=== PATIENT | female | born 1960 | race African-American/Black ===

== ENCOUNTER 2021-08-15 05:37 | Emergency (ER) | payer MEDICAID ==
[~2021-08-15] VITALS: Ht 180.3 cm; Wt 59.0 kg
[2021-08-15 06:11] VITALS: BP_SYST 119
[2021-08-15] MEDS ORDERED: predniSONE 20 MG TABLET PO ONE (06:45)
[2021-08-15 06:52] LABS: BASOPHILS % (AUTO) 0.3 % (0.0-2.0); EOSINOPHILS % (AUTO) 0.3 % (0.0-4.0); HEMATOCRIT 37.6 % (36-48); HEMOGLOBIN 12.3 g/dL (12.0-16.0); LYMPHOCYTES # (AUTO) 1.9 K/uL (1.0-5.5); LYMPHOCYTES % (AUTO) 19.7 % (20.5-51.5); MEAN CORPUSCULAR HEMOGLOBIN 22 pg (27-31); MEAN CORPUSCULAR HGB CONC 33 % (32-36); MEAN CORPUSCULAR VOLUME 66 fL (79.0-98.0); MONOCYTES # (AUTO) 1.1 K/uL (0.0-1.0); MONOCYTES % (AUTO) 11.6 % (1.7-9.3); NEUTROPHILS # (AUTO) 6.4 K/uL (1.8-7.7); NEUTROPHILS % (AUTO) 68.1 % (40.0-70.0); PLATELET COUNT (AUTO) 259 K/uL (130-430); RED BLOOD CELL COUNT(AUTO) 5.67 MIL/uL (4.2-6.2); RED CELL DISTRIBUTION WIDTH 14.8 % (9.0-15.0); WHITE BLOOD COUNT (AUTO) 9.5 K/uL (4.8-10.8)
[2021-08-15] MEDS ORDERED: predniSONE 20 MG TABLET ONE (06:59)
[2021-08-15] MEDS ORDERED: IPRATROPIUM/ALBUTEROL SULFATE 3 ML AMPUL.NEB (DUONEB) INH ONE (07:00)
[2021-08-15] MEDS ORDERED: methylPREDNISolone SOD SUCC/PF 62.5 MG/ML VIAL IVP ONE (07:00)
[2021-08-15 07:12] LABS: CALCIUM 8.9 mg/dL (8.4-11.0); CREATININE 0.84 mg/dL (0.55-1.30); POTASSIUM 3.8 mmol/L (3.5-5.1)
[2021-08-15 07:22] LABS: ALBUMIN 3.3 g/dL (3.4-4.8); TOTAL BILIRUBIN 0.3 mg/dL (0.0-1.0)
[2021-08-15 12:03] VITALS: BP_SYST 107
== END 2021-08-15 12:01 | disposition short-term general hospital (02) ==
LOC: SED 05:37
DX: J45.901 Unspecified asthma with (acute) exacerbation (principal); Z20.822 Contact with and (suspected) exposure to COVID-19
CPT/HCPCS: 36415; 36600; 71045; 80053; 82803; 83880; 84484; 85025; 87426; 93005; 94640; 96374; 99285; J7512

== ENCOUNTER 2022-09-25 17:51 | Inpatient (IN) | payer MEDICAID ==
[~2022-09-25] VITALS: Ht 177.8 cm; Wt 79.2 kg
--- NOTE | 2022-09-25 18:08 | NUR ---
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
--- NOTE | 2022-09-25 18:49 | NUR ---
XRAY AT BEDSIDE AT THIS TIME
[2022-09-25 19:20] LABS: BASOPHILS % (AUTO) 0.4 % (0.0-2.0); HEMATOCRIT 40.1 % (36-48); HEMOGLOBIN 13.1 g/dL (12.0-16.0); LYMPHOCYTES # (AUTO) 1.3 K/uL (1.0-5.5); LYMPHOCYTES % (AUTO) 13.4 % (20.5-51.5); MEAN CORPUSCULAR HEMOGLOBIN 22 pg (27-31); MEAN CORPUSCULAR HGB CONC 33 % (32-36); MEAN CORPUSCULAR VOLUME 67 fL (79.0-98.0); MONOCYTES % (AUTO) 10.8 % (1.7-9.3); NEUTROPHILS # (AUTO) 7.1 K/uL (1.8-7.7); NEUTROPHILS % (AUTO) 75.4 % (40.0-70.0); PLATELET COUNT (AUTO) 210 K/uL (130-430); RED BLOOD CELL COUNT(AUTO) 6.02 MIL/uL (4.2-6.2); RED CELL DISTRIBUTION WIDTH 15.9 % (9.0-15.0); WHITE BLOOD COUNT (AUTO) 9.4 K/uL (4.8-10.8)
--- NOTE | 2022-09-25 19:39 | NUR ---
MRSA AND COVID COLLECTED AND SENT TO LAB.
--- NOTE | 2022-09-25 19:40 | NUR ---
Received report from DAJUAN Lopez; assuming care of patient at this time.
[2022-09-25 19:41] LABS: CALCIUM 9.3 mg/dL (8.4-11.0); CREATININE 1.01 mg/dL (0.55-1.30)
[2022-09-25] MEDS ORDERED: MEROPENEM 1 GM IVPB PREMIX 50 ML IV ONE (19:45)
[2022-09-25] MEDS ORDERED: VANCOMYCIN HCL 1,000 MG in NS 250 ML IV ONE (19:45)
--- NOTE | 2022-09-25 19:45 | NUR ---
RUPESH APODACA Kwaw at bedside.
[2022-09-25 19:46] LABS: ALBUMIN 3.6 g/dL (3.4-4.8); TOTAL BILIRUBIN 0.3 mg/dL (0.0-1.0)
--- NOTE | 2022-09-25 19:46 | NUR ---
Patient A/Ox4, VSS, ambulatory, resp even and unlabored. Patient has productive cough. Patient resting comfortably in bed with safety precautions and connected to monitor. Nad noted at this time.
[2022-09-25] MEDS ORDERED: ACETAMINOPHEN WITH CODEINE 12.5 ML UDC PO ONE (20:00)
--- NOTE | 2022-09-25 22:07 | NUR ---
Admit bed requested Patient will be admitted to care of . Admitted to TELEMETRY unit. Diagnosis RESPIRATORY FAILURE Inpatient (Yes or No) Y Observation (Yes or No) N Orientation concerns or request close to nursing station (Yes or No) Y Covid Status PENDING On vent or bipap N Isolation requirements N Needs a sitter N From Home (Yes or if No enter name of facility) [facility] Requires Dialysis (Yes or No) N Med Rec Completed (Yes of No) Y
[2022-09-25] MEDS ORDERED: IPRATROPIUM/ALBUTEROL SULFATE 3 ML AMPUL.NEB (DUONEB) INH PRN (22:30)
--- NOTE | 2022-09-25 23:00 | NUR ---
Patient pulled out IV at this time.
--- NOTE | 2022-09-25 23:01 | NUR ---
Received call from MD Hutchinson with [facility] for patient to have CTA of chest with contrast to rule out PE.
--- NOTE | 2022-09-25 23:05 | NUR ---
CONSULTATION CALLED FOR DR. GAMING FOR CONSULT OF RESP FAILURE ORDER BY DR. ROQUE SPOKE WITH BARBARA
--- NOTE | 2022-09-25 23:20 | NUR ---
ER MD Huitron at bedside.
--- NOTE | 2022-09-26 00:10 | NUR ---
Patient will be admitted to care of [facility]. Admitted to tele unit. Will go to room 134B. Belongings list completed. Complete and up to date summary report printed. SBAR report given to DAJUAN Lopez at bedside with opportunity for questions.
[2022-09-26] MEDS: METHYLPREDNISOLONE SOD SUCC 40 MG/ML VIAL IVP SCH ×5 (00:27→20:41)
--- NOTE | 2022-09-26 01:07 | NUR ---
LEFT VOICEMAIL FOR PT DAUGHTER AT [phone] FOR CONSENT FOR IV CONTRAST Addendum: 09/26/22 at 0415 by Jessica Brambila RN SON, NOT DAUGHTER
--- NOTE | 2022-09-26 02:49 | NUR ---
RECEIVED PT FROM ED, NO DISTRESS NOTED, DENIES PAIN. SSOX3, LETHARGIC. O2 SAT 93% 2L NC, APPLIED 3L O2 SAT 95%. LUNG SOUNDS DIMINISHED. IV TO RT NECK IJ SITE CDI.
[2022-09-26 04:04] VITALS: BP_SYST 116
--- NOTE | 2022-09-26 04:15 | NUR ---
SHERRY BOYD (SON) PHONE NUMBER: [phone]
[2022-09-26] MEDS ORDERED: PIOG15TA8 PO (05:08)
[2022-09-26] MEDS ORDERED: GLIP5TAB26 PO (05:08)
[2022-09-26] MEDS ORDERED: METF-379 PO (05:08)
[2022-09-26] MEDS ORDERED: NIAC250T26 PO (05:08)
[2022-09-26] MEDS ORDERED: BENZ1TAB82 PO (05:08)
[2022-09-26] MEDS ORDERED: HAL5 PO (05:08)
[2022-09-26] MEDS ORDERED: LIP40 PO (05:08)
[2022-09-26] MEDS ORDERED: ASPI-989 PO (05:08)
[2022-09-26] MEDS ORDERED: TIOT4MIS5 IH (05:08)
[2022-09-26] MEDS ORDERED: GLIP5TAB13 PO (06:52)
--- NOTE | 2022-09-26 08:00 | NUR ---
PATIENT UNSTEADY AND ATTEMPTING TO AMBULATE, TRIED TO REDIRECT PATIENT, MOVED TO ROOM 132 B, TO HAVE HER CLOSER TO NURSES STATION FOR SAFETY, BED ALARM SET, BED IN LOWEST POSITION
--- NOTE | 2022-09-26 10:23 | NUR ---
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
[2022-09-26 11:22] VITALS: BP_SYST 101
[2022-09-26] MEDS ORDERED: IPRATROPIUM/ALBUTEROL SULFATE 3 ML AMPUL.NEB (DUONEB) INH ONE (15:30)
[2022-09-26] MEDS ORDERED: cefTRIAXone 1 GM in D5W 50 ML IV SCH (16:30)
[2022-09-26 16:33] VITALS: BP_SYST 104
--- NOTE | 2022-09-26 16:34 | NUR ---
ORDERS RECEIVED FROM DR. ROQUE TO NM TELEMETRY
[2022-09-26 19:50] VITALS: BP_SYST 111
--- NOTE | 2022-09-26 19:50 | NUR ---
RECEIVED PT IN BED, AOX2, EVEN AND UNLABORED BREATHING, R IJ SALINE LOCK DRY AND INTACT, DENIED ANY PAIN, WILL CONTINUE WITH PLAN OF CARE
[2022-09-26] MEDS: IPRATROPIUM/ALBUTEROL SULFATE 3 ML AMPUL.NEB (DUONEB) INH SCH (21:17)
[2022-09-26] MEDS: DOXYCYCLINE HYCLATE 100 MG CAPSULE PO SCH (21:30)
[2022-09-26] MEDS: INSULIN REGULAR, HUMAN 100 UNITS/ML, 3 ML VIAL (humuLIN R) SUBCUT PRN (21:31)
--- NOTE | 2022-09-26 22:54 | NUR ---
CHECKED PT BS AT 2100 AND IT WAS 342, NO S/S HYPERGLYCEMIA NOTED, NO ACCUCHECK OR SLIDING SCALE ORDER IN PLACE. DR. ROQUE CONTACTED AND ORDERED ACHS AND SLIDING SCALE, PT RECEIVED 8 UNITS OF REGULAR INSULIN, WILL CONTINUE WITH PLAN OF CARE
[2022-09-27] VITALS: BP_SYST 133
--- NOTE | 2022-09-27 00:53 | NUR ---
PT PULLED OUT REJ ACCESS AT THIS TIME, PRESSURE APPLIED AND BLEEDING STOPPED, NO COMPLAIN BY PT, WILL CONTINUE WITH POC
[2022-09-27] MEDS: IPRATROPIUM/ALBUTEROL SULFATE 3 ML AMPUL.NEB (DUONEB) INH SCH ×8 (02:06→23:10)
[2022-09-27] MEDS: METHYLPREDNISOLONE SOD SUCC 40 MG/ML VIAL IVP SCH ×2 (03:31→09:02)
--- NOTE | 2022-09-27 06:21 | NUR ---
PT IN BED, AOX2, EVEN AND UNLABORED BREATHING, DENIED SOB, CP, OR PAIN AT THIS TIME, RW SALINE LOCK PATENT, PT PULLED OUT THE REJ DURING SHIFT, ACCUCHECK DONE AND PT COVERED WITH INSULIN PER SLIDING SCALE, ON BEDREST, VOIDING W/O DIFFICULTY, HAD 2 BM DURING SHIFT, SAFETY PREC MAINTAINED, LOW BED, CALL LIGHT WITHIN REACH, WILL BE ENDORSED TO MORNING RN
[2022-09-27] MEDS: INSULIN REGULAR, HUMAN 100 UNITS/ML, 3 ML VIAL (humuLIN R) SUBCUT PRN ×3 (06:30→17:15)
[2022-09-27 06:51] LABS: C-REACTIVE PROTEIN QUANT 2.9 mg/dL (0-0.5); CALCIUM 9.1 mg/dL (8.4-11.0); CREATININE 0.86 mg/dL (0.55-1.30)
[2022-09-27 07:03] LABS: BASOPHILS % (AUTO) 0.1 % (0.0-2.0); HEMATOCRIT 37.5 % (36-48); HEMOGLOBIN 12.2 g/dL (12.0-16.0); LYMPHOCYTES % (AUTO) 11.4 % (20.5-51.5); MEAN CORPUSCULAR HEMOGLOBIN 22 pg (27-31); MEAN CORPUSCULAR HGB CONC 32 % (32-36); MEAN CORPUSCULAR VOLUME 68 fL (79.0-98.0); MONOCYTES # (AUTO) 0.2 K/uL (0.0-1.0); MONOCYTES % (AUTO) 2.4 % (1.7-9.3); NEUTROPHILS # (AUTO) 7.5 K/uL (1.8-7.7); PLATELET COUNT (AUTO) 186 K/uL (130-430); RED BLOOD CELL COUNT(AUTO) 5.55 MIL/uL (4.2-6.2); RED CELL DISTRIBUTION WIDTH 15.8 % (9.0-15.0); WHITE BLOOD COUNT (AUTO) 8.7 K/uL (4.8-10.8)
[2022-09-27 08:00] LABS: NEUTROPHILS % (AUTO) 86.1 % (40.0-70.0)
[2022-09-27 08:25] VITALS: BP_SYST 120
[2022-09-27 08:52] LABS: ERYTHROCYTE SEDIMENTATION RATE 104 MM/HR (0-20)
[2022-09-27] MEDS: DOXYCYCLINE HYCLATE 100 MG CAPSULE PO SCH ×2 (09:02→21:27)
[2022-09-27 11:20] VITALS: BP_SYST 114
[2022-09-27] MEDS ORDERED: FAMOTIDINE 20 MG TABLET PO ONE (13:00)
[2022-09-27] MEDS ORDERED: HALOPERIDOL 5 MG TABLET (HALDOL) PO PRN (13:30)
[2022-09-27] MEDS ORDERED: ASPIRIN 325 MG TABLET PO ONE (13:45)
[2022-09-27] MEDS ORDERED: BENZTROPINE MESYLATE 1 MG TABLET PO ONE (13:45)
[2022-09-27 15:30] VITALS: BP_SYST 126
[2022-09-27] MEDS: metFORMIN HCL 500 MG TABLET PO SCH (17:12)
--- NOTE | 2022-09-27 20:00 | NUR ---
OPENING Patient resting in bed, unlabored breathing on room air. AOx1-2. No complaint of pain or shortness of breath. Safety precautions in place.
[2022-09-27 20:15] VITALS: BP_SYST 116
[2022-09-27] MEDS ORDERED: ATORVASTATIN 20 MG TABLET PO SCH (21:00)
[2022-09-27] MEDS: predniSONE 20 MG TABLET PO SCH (21:27)
[2022-09-27] MEDS: BENZTROPINE MESYLATE 1 MG TABLET PO SCH (21:28)
[2022-09-27] MEDS: FAMOTIDINE 20 MG TABLET PO SCH (21:28)
[2022-09-28] VITALS: BP_SYST 112
--- NOTE | 2022-09-28 01:06 | NUR ---
ROUNDS Patient asleep in bed, unlabored breathing on room air. Safety precautions in place.
[2022-09-28] MEDS: IPRATROPIUM/ALBUTEROL SULFATE 3 ML AMPUL.NEB (DUONEB) INH SCH ×3 (03:37→10:51)
--- NOTE | 2022-09-28 05:40 | NUR ---
Patient stable throughout night. Ambulated to bathroom with standby assist and steady gait. No complaint of pain. Incontinent of urine. Gown and linens changed. Safety precautions in place. Exit alarm on, bed low and locked.
[2022-09-28] MEDS: INSULIN REGULAR, HUMAN 100 UNITS/ML, 3 ML VIAL (humuLIN R) SUBCUT PRN (06:30)
--- NOTE | 2022-09-28 07:45 | NUR ---
PT REFUSED TX. NO DISTRESS NOTED. WILL CONTINUE TO MONITOR
--- NOTE | 2022-09-28 07:53 | NUR ---
OPENING NOTES: PT SITTING UP IN BED EATING BREAKFAST. NO S/S OF DISTRESS OR PAIN REPORTED. BREATHING IS EVEN AND UNLABORED ON RA. ALL NEEDS MET AT THIS TIME , SAFETY CHECKS MADE AND CALL LIGHT WITHIN REACH.
[2022-09-28 08:00] VITALS: BP_SYST 104
[2022-09-28] MEDS: FAMOTIDINE 20 MG TABLET PO SCH (08:28)
[2022-09-28] MEDS: metFORMIN HCL 500 MG TABLET PO SCH (08:28)
[2022-09-28] MEDS: DOXYCYCLINE HYCLATE 100 MG CAPSULE PO SCH (08:28)
[2022-09-28] MEDS: predniSONE 20 MG TABLET PO SCH (08:28)
[2022-09-28] MEDS: BENZTROPINE MESYLATE 1 MG TABLET PO SCH (08:29)
[2022-09-28] MEDS ORDERED: PIOGLITAZONE HCL 15 MG TABLET PO SCH (09:00)
[2022-09-28] MEDS ORDERED: NON-FORMULARY MEDICATION (Niacin 500 MG) PO SCH (09:00)
[2022-09-28] MEDS ORDERED: NIACIN 500 MG TABLET.SA PO SCH (09:00)
[2022-09-28] MEDS ORDERED: ASPIRIN 81 MG TAB.CHEW PO SCH (09:00)
--- NOTE | 2022-09-28 09:37 | NUR ---
NOTES: PT IV CAME OUT WHILE SHE WAS IN THE BATHROOM. REPLACED IV WITH 22G LEFT HAND. WRAPPED WITH CURLEX.
[2022-09-28 11:52] VITALS: BP_SYST 113
[2022-09-28] MEDS ORDERED: IPRA3AMP9 INH (12:40)
[2022-09-28] MEDS ORDERED: PRED20TA PO (12:40)
[2022-09-28] MEDS ORDERED: DOXY100C5 PO (12:40)
[2022-09-28] MEDS ORDERED: BLOO-1360 XX (12:40)
[2022-09-28] MEDS ORDERED: GUAI5SYR PO (13:06)
[2022-09-28] MEDS ORDERED: PROMETHAZINE-DM 6.25 MG-15 MG/5 ML UDC PO PRN (13:15)
--- NOTE | 2022-09-28 14:03 | NUR ---
ROUNDS: DR GAMING ORDERED COUGH SYRUP FOR PT. FOLLOWED UP WITH PHARMACY TO WHEN IT WILL BE AVAILABLE TO GIVE THE PT.
--- NOTE | 2022-09-28 14:14 | NUR ---
Pt. is going to [facility] [phone] Room [facility]. Will be picked up by an ambulance (Call the Car) at 4:00PM with
[2022-09-28 14:33] VITALS: BP_SYST 121
--- NOTE | 2022-09-28 14:49 | NUR ---
DISCHARGE: NOTIFIED NEXT OF KIN SHERRY ABOUT PT TRANSFER TO [facility]. HE VERBALIZED UNDERSTANDING.
--- NOTE | 2022-09-28 15:07 | NUR ---
DISCHARGE: ATTEMPTED TO CALL [facility] TO GIVE REPORT TO RECEIVING NURSE . KEPT GETTING TRANSFERRED TO A VOICEMAIL. LEFT A MESSAGE AND CALLED BACK ALSO LEFT MESSAGE WITH STATION 5 TARIFF INSPECTOR TO HAVE RECEIVING NURSE CALL ME BACK AT EXT [phone]. WAITING TO GIVE REPORT SO I CAN COMPLETE THE D/C PAPERWORK.
--- NOTE | 2022-09-28 15:26 | NUR ---
PATIENT REFUSED PT TREATMENT STATING SHE IS ABLE TO AMBULATE PATIENT AMBULATES TO RESTROOM.
== END 2022-09-28 15:50 | DRG 139 ==
LOC: SED 17:51 → STU 21:48 → SMU 09-26 18:47
PROVIDERS: ADMIT Internal Medicine; ATTEND Internal Medicine
DX: J18.9 Pneumonia, unspecified organism (principal); J96.01 Acute respiratory failure with hypoxia; J44.1 Chronic obstructive pulmonary disease with (acute) exacerbation; E78.5 Hyperlipidemia, unspecified; F20.9 Schizophrenia, unspecified; F41.9 Anxiety disorder, unspecified; J20.9 Acute bronchitis, unspecified; E11.9 Type 2 diabetes mellitus without complications; I10 Essential (primary) hypertension; F17.200 Nicotine dependence, unspecified, uncomplicated; Z20.822 Contact with and (suspected) exposure to COVID-19; J44.0 Chronic obstructive pulmonary disease with (acute) lower respiratory infection
CPT/HCPCS: 36415; 71045; 71275; 76376; 80048; 80053; 82803-TC; 83605; 85025; 85651-TC; 86140; 87040; 87081; 93005; 94640; 94760; 96365; 96366; 96368; 97116-GP; 97161-GP; 99285; G0378; J0696; J1030; J1815; J2185; J3370; J7050; J7060; J7512; Q9967